=== PATIENT | male | born 1980 | race Caucasian/White ===

== ENCOUNTER → 2021-01-02 03:11 | Outpatient (CLI) | payer OTHER, SELFPAY ==
[2021-01-03 16:22] LABS: SARS-CoV-2 RNA PCR Negative
== END ==
PROVIDERS: Visit Provider Urology
DX: Z01.812 Encounter for preprocedural laboratory examination (principal); Z20.822 Contact with and (suspected) exposure to COVID-19
CPT/HCPCS: C9803; U0003; U0005

== ENCOUNTER 2021-01-05 00:08 | Day surgery (SDC) | payer OTHER, SELFPAY ==
[2020-12-28 09:46] VITALS: BMI 32.3
--- NOTE | 2021-01-04 14:21 | WPDANESEPPF ---
Anes - Initial Pre Proc Eval Procedure: Operation Date: 01/05/21 13:45 Proposed Procedures p Cystoscopy, Urethral Dilatation - Darryl Chakraborty MD Date/Time: 01/04/21 14:21 Surgeon: Darryl Chakraborty MD Pre Op Diagnosis: lower urinary tract infection Patient Data Age: 40 Gender: M Height: 1.68 m Weight: 90.72 kg Allergies Allergy/AdvReac Type Severity Reaction Status Date / Time No Known Allergies Allergy Verified 01/05/21 11:29 Home Medications Medication Instructions Recorded Confirmed Type No Home Medications 12/28/20 01/05/21 History Patient hx anesthesia problems: none Family hx anesthesia problems: none Results Review: All pre-operative results and documents have been reviewed as part of the pre-operative evaluation. PMFSH Past Medical History Medical History Anxiety Obesity PTSD (post-traumatic stress disorder) Smoker Social History Social History Smoking packs per day: 0.75 Smoking cigarettes per day: 15.0 Years smoked: 15 Smoking pack-years: 11.25 Smoking status: Current every day smoker Tobacco type: cigarettes Alcohol intake: never Substance use: never Substance use type: does not use Living arrangements: with family Spiritual care concerns: No Anes - Eval Final PreProcedure Day of Procedure 01/04/21 14:21 Patient weight: obese Heart: regular rate and rhythm Lungs: clear to auscultation and normal air movement Airway: Mallampati scale class II Neurological: alert and oriented Last oral intake: >/= 8 hours ASA classification: II Emergent: no Anesthetic plan: proceed Anesthesia type and monitoring: general LMA Results Review: All pre-operative results and documents have been reviewed as part of the pre-operative evaluation. Informed Consent: The patient's anesthetic plan and its attendant risks and benefits were discussed with the patient/family/POA. Questions were solicited and answers provided to the satisfaction of the patient/family/POA.
[2021-01-05] VITALS (8 sets, daily range): BP systolic 112–133; BP diastolic 65–80; PULSE 73–101; RESP 13–20; TEMP 36.2–36.9; O2SAT 76–100
--- NOTE | 2021-01-05 06:45 | WPDHPUPDATE1 ---
History and Physical Update Update Date/Time: 01/05/21 06:45 History and Physical has been reviewed, including an updated exam of the patient. There are NO changes in the patient's condition. Risks, benefits, and alternatives have been discussed and questions answered. Patient agrees to proceed with procedure.
[2021-01-05] MEDS: LACTATED RINGERS 1,000 ML 30 ML IV CONT (12:15)
[2021-01-05] MEDS: ceFAZolin 2 GM/D5W 50 ML 2 GM/50 ML BAG IVPB (13:16)
[2021-01-05] MEDS: LIDOCAINE HCL 2% GEL UROJET 10 ML PKG MUCOUS MEM (13:33)
--- NOTE | 2021-01-05 14:30 | P.OP_ITS ---
Procedure Note - Detailed Date of Procedure 01/05/21 Pre-op Diagnosis Urethral stricture Post-op Diagnosis same Procedure Performed 1. Optical internal urethrotomy 2. Had a cystoscopy with urethral dilatation 3. Complex [place] catheterization Surgeon Darryl Chakraborty MD Anesthesia general Description of Procedure Patient is brought to the operative suite was prepped draped in routine sterile fashion while in dorsal lithotomy position. After a time-out a with and preoperative antibiotics cystoscopy is undertaken with a 16 F flexible cystoscope. I can not immediately see he has a very tight bulbous urethral stricture. Attempted to place a 0.035 in glidewire into the bladder and it became apparent that he has multiple concentric strictures which made it very difficult, essentially impossible, to pass the guidewire initially. I performed an internal urethrotomy of the bulbous urethral stricture and, only there after, was able to navigate a guidewire into his bladder. I dilated with Amplatz dilators to 18 F and placed a 16 F [place] tip catheter. I suspect this patient will need formal reconstructive surgery at some point in the future. I will plan to leave the catheter in for 5-7 days. Estimated Blood Loss 5 Drains Yes Packing No Pathology none sent Complications No immediate complications Condition stable Disposition PACU
[2021-01-05] MEDS: fentaNYL CITRATE INJ (*CRX) 100 MCG/2 ML VIAL 25 MCG IV PUSH ×8 (15:00→15:27)
[2021-01-05] MEDS: oxyCODONE HCL (*CRX) 5 MG TAB IR PO (16:07)
== END 2021-01-05 16:45 | disposition home or self-care (01) ==
PROVIDERS: PCP Internal Medicine; Visit Provider Urology
PROC: 0T7D8ZZ Dilation of Urethra, Via Natural or Artificial Opening Endoscopic (ICD-10-PCS; CPT 52281; principal; 2021-01-05 13:45)
DX: N35.912 Unspecified bulbous urethral stricture, male (principal); F43.11 Post-traumatic stress disorder, acute; F41.9 Anxiety disorder, unspecified; E66.9 Obesity, unspecified; Z68.32 Body mass index [BMI] 32.0-32.9, adult; F17.210 Nicotine dependence, cigarettes, uncomplicated
CPT/HCPCS: 52276; A9270; C1726; C1769; C9803; J0690; J1100; J2250; J2405; J2704; J3010; J7120; U0003; U0005